=== PATIENT | female | born 1995 | race Caucasian/White ===

== ENCOUNTER 2021-01-28 11:38 | Outpatient (CLI) | payer BC, SELFPAY ==
[2021-01-28 12:00] VITALS: BP 145/93; PULSE 92
[2021-01-28 12:03] VITALS: BP 145/93; PULSE 92
[2021-01-28 12:15] VITALS: BP 147/93; PULSE 91
[2021-01-28 12:23] LABS: Basophils Absolute Auto 0.1 K/mm3 (0.0-0.1); Basophils Percent Auto 0.4 % (0.2-1.2); Eosinophils Absolute Auto 0.1 K/mm3 (0-0.3); Eosinophils Percent Auto 0.7 % (0-4.4); Hemoglobin 10.9 g/dL (12.0-15.0); Immature Granulocyte Absolute 0.51 K/mm3 (0.00-0.031); Immature Granulocyte Percent A 3.2 % (0-0.5); Lymphocytes Absolute Auto 2.75 K/mm3 (0.9-3.2); Mean Corpuscular HGB Conc 31.1 g/dl (32-36); Mean Corpuscular Hemoglobin 25.8 pg (26-34); Mean Corpuscular Volume 82.7 fl (80-100); Mean Platelet Volume 11.5 fl (7.4-10.4); Monocytes Absolute Auto 1.5 K/mm3 (0.1-0.6); Monocytes Percent Auto 9.3 % (2.6-8.5); Neutrophils Absolute Auto 11.2 K/mm3 (1.3-6.7); Neutrophils Percent Auto 69.4 % (45.5-73.1); Nucleated Red Blood Cells Absolute Auto 0.1 K/mm3 (0.0-0.012); Nucleated Red Blood Cells Perc 0.4 % (0.0-0.2); Platelet Count Result 209 k/mm3 (150-375); Red Blood Count 4.23 M/mm3 (4.2-5.4); Red Cell Distribution Width 14.4 % (11.5-14.5); White Blood Count 16.2 K/mm3 (4.5-10.0)
[2021-01-28 12:30] VITALS: BP 139/94; PULSE 91
[2021-01-28 12:32] LABS: Alanine Aminotransferase 11 U/L (4-35); Albumin Level 3.6 g/dL (3.5-5.1); Alkaline Phosphatase 200 U/L (38-126); Anion Gap 3 mmol/L (8-16); Aspartate Amino Transferase 21 U/L (14-36); Bilirubin,Total 0.3 mg/dL (0.2-1.3); Blood Urea Nitrogen 6 mg/dL (7-17); Calcium 9.6 mg/dL (8.4-10.2); Carbon Dioxide 25 mmol/L (22-30); Chloride 106 mmol/L (98-107); Estimated Glomerular Filt Rate > 60; Glucose 73 mg/dL (65-105); Potassium 3.8 mmol/L (3.4-5.0); Sodium 134 mmol/L (137-145); Uric Acid 4.6 mg/dL (2.5-7.5)
[2021-01-28 12:44] LABS: Add Urine Microscopic? YES; Appearance Urine Cloudy (Clear); Bacteria Urine 4+ /hpf; Bilirubin Urine Negative (Negative); Blood Urine 2+ (Negative); Color Urine Yellow (Yellow); Glucose Urine UA Negative (Negative); Ketones Urine Negative (Negative); Leukocyte Esterase Ur 3+ LEU/UL (NEGATIVE); Nitrate Urine Negative (Negative); Protein Urine Negative (Negative); Specific Grav Ur 1.005 (1.001-1.035); Squamous Epithelial Cell Urine Moderate /hpf (Few); Urobilinogen Urine Negative mg/dL (<2.0); WBC Urine 31-50 /hpf (0-3)
[2021-01-28 12:45] VITALS: BP 137/90; PULSE 95
[2021-01-28 12:49] LABS: Creatinine Urine 25.4 mg/dL; Total Protein Urine Random 14 mg/dL; Ur Ttl Prot Creatinine Ratio 0.55 mg/mg (0-0.20)
[2021-01-28 13:00] VITALS: BP 138/83; PULSE 92
== END 2021-01-28 13:20 | disposition home or self-care (01) ==
LOC: ANHOBOP 11:43 → ANHOBPP 11:44
PROVIDERS: PCP Nurse Practitioner Adult Health; Visit Provider Obstetrics & Gynecology
DX: O13.9 Gestational [pregnancy-induced] hypertension without significant proteinuria, unspecified trimester (principal); Z3A.00 Weeks of gestation of pregnancy not specified
CPT/HCPCS: 36415; 59025; 80053; 81001; 82570; 84156; 84550; 85025; 87086; 99199

== ENCOUNTER 2021-01-31 05:05 | Inpatient (IN) | payer BC, SELFPAY ==
[2021-01-31] VITALS (110 sets, daily range): BP systolic 105–158; BP diastolic 54–105; PULSE 84–118; RESP 15–18; TEMP 36.4–36.9; O2SAT 94–100; BMI 37.5
[2021-01-31 05:37] LABS: Basophils Percent Auto 0.2 % (0.2-1.2); Eosinophils Absolute Auto 0.1 K/mm3 (0-0.3); Hematocrit 35.3 % (37.0-47.0); Hemoglobin 10.9 g/dL (12.0-15.0); Immature Granulocyte Absolute 0.33 K/mm3 (0.00-0.031); Immature Granulocyte Percent A 2.5 % (0-0.5); Lymphocytes Absolute Auto 3.07 K/mm3 (0.9-3.2); Lymphocytes Percent Auto 22.9 % (18.3-44.2); Mean Corpuscular HGB Conc 30.9 g/dl (32-36); Mean Corpuscular Hemoglobin 25.8 pg (26-34); Mean Corpuscular Volume 83.5 fl (80-100); Mean Platelet Volume 11.5 fl (7.4-10.4); Monocytes Absolute Auto 0.9 K/mm3 (0.1-0.6); Monocytes Percent Auto 6.6 % (2.6-8.5); Neutrophils Percent Auto 66.8 % (45.5-73.1); Nucleated Red Blood Cells Perc 0.1 % (0.0-0.2); Platelet Count Result 198 k/mm3 (150-375); Red Blood Count 4.23 M/mm3 (4.2-5.4); Red Cell Distribution Width 14.6 % (11.5-14.5); White Blood Count 13.4 K/mm3 (4.5-10.0)
--- NOTE | 2021-01-31 05:43 | LDADM ---
This patient, Michelle Brown, was admitted to Labor/Delivery/Recovery 106 on 01/31/21 at 05:05. Plans for labor, pain management and were discussed with patient. Patient/family oriented to hospital policies and general routines including ID bracelet, bed and alarms, visiting hours, pain management, procedures, bathroom and other care routines, personal items, smoking policy, room service/diet and guest tray routines, infant security routines, and visiting hours. Patient/Family are encouraged to report perceived risks to care and to ask questions if they do not understand what they are told or what they should do. See OBIX for further documentation.
[2021-01-31 05:46] LABS: INR 0.9; Prothrombin Time 12.6 Seconds (11.1-14.7)
[2021-01-31] MEDS: AMPICILLIN 2 GM/NS 100 ML 2 GM/100 ML BAG IVPB (05:50)
[2021-01-31] MEDS: LACTATED RINGERS 1,000 ML 125 ML IV CONT ×2 (05:50→07:53)
[2021-01-31] MEDS: OXYTOCIN 30 UNITS/NS 500 ML 30 UNITS/500 ML BAG 6 UNITS IV CONT (05:50)
[2021-01-31 05:54] LABS: Uric Acid 4.8 mg/dL (2.5-7.5)
[2021-01-31 06:21] LABS: Alanine Aminotransferase 13 U/L (4-35); Albumin Level 3.3 g/dL (3.5-5.1); Alkaline Phosphatase 196 U/L (38-126); Anion Gap 4 mmol/L (8-16); Aspartate Amino Transferase 22 U/L (14-36); Bilirubin,Total 0.2 mg/dL (0.2-1.3); Blood Urea Nitrogen 3 mg/dL (7-17); Calcium 8.9 mg/dL (8.4-10.2); Carbon Dioxide 22 mmol/L (22-30); Chloride 107 mmol/L (98-107); Estimated CRCL calculation 167 ml/min; Estimated Glomerular Filt Rate > 60; Glucose 124 mg/dL (65-105); Potassium 3.6 mmol/L (3.4-5.0); Sodium 133 mmol/L (137-145)
--- NOTE | 2021-01-31 07:08 | WPDOBADMIT ---
Obstetrics - Admit Note Admission Note: record reviewed. Additions to the history and/or subsequent changes in the physical findings follow. 25 y/o G1 at 38 4/7 weeks with elevated bp readings. No headaches, no RUQ or midepigastric pain, no visual field change. Labs OK last week. Have offered induction of labor secondary to gestational hypertension at term. Also has history of DVT, has been on Lovenox and was transitioned to heparin several weeks ago. Last dose 2 days ago. Bilateral clubfeet. AVSS NST reactive TOCO: contractions irregularly ABD soft, nontender, gravid, vertex EXT nontender Cervix 4/50/-2. AROM with clear fluid. Vertex. A: IUP at term with gestational HTN, thrombophilia, club feet. P: Oxytocin. Anticipate .
[2021-01-31 09:27] LABS: Rapid Plasma Reagin Non-Reactive (NonReactive)
[2021-01-31] MEDS: AMPICILLIN 1 GM/NS 50 ML 1 GM/50 ML BAG IVPB (10:05)
--- NOTE | 2021-01-31 13:58 | P.PCNOB_ITS ---
OB - Delivery Note Procedure Delivery date: 01/31/21 Procedure: Induction of labor with VAVD Induction method: per pitocin protocol Delivery augmentation: rupture of membranes and pitocin Delivery monitor: external FHT and external uterine Route of delivery: vacuum extraction Laceration Description: Perineal - 2nd Degree Delivery repair: vicryl (3-0) Specimen: Yes (cord blood) Quantitative Blood Loss (ml): 240 Anesthesia type: Epidural Complications: None Narrative: 25 y/o G1 at 38 4/7 weeks gestation who presented to the hospital for induction of labor. Oxytocin was administered intravenously. Amniotomy was performed with return of clear fluid. She received an epidural for pain control. Her labor progressed and her cervix dilated completely. She pushed with good effort and brought the presenting part to the +2/3 station. She began to have a poor pushing effort secondary to exhaustion after 1.5 hours of pushing. After informed consent was obtained, the [place]at[place] vacuum suction cup was applied to the vertex. Using the Dreifingergriff, the head was gently flexed. Over three contractions, and with no pop-offs, the 's head delivered to the perineum, followed by the body. The nose and mouth were bulb suctioned. After a delay, the cord was clamped and cut. The infant was handed off the field. Cord blood was collected. The placenta delivered spontaneously and was grossly normal in appearance. The usual 3 vessel cord was noted. A second degree midline perineal laceration was sustained. This was reapproxima betsy using 3 0 Vicryl in the usual layered fashion. Excellent hemostasis resulted as did excellent reapproximation of the normal anatomy. Needle and instrument counts were correct. The patient was taken to recovery room in stable condition. I was present and scrubbed for the entire delivery. Gary Baby Date of : 01/31/21 Time of : 13:29 Weeks of gestation at delivery: 38 Infant gender: Female Weight (pounds): 8 Weight (ounces): 0 presentation: vertex position: Left Occiput Anterior Placenta delivery description: Spontaneous and Normal Configuration cord vessel description: 3 Vessels and Delayed Cord Clamping score one minute: 5 score five minutes: 9
[2021-01-31] MEDS: OXYTOCIN 30 UNITS/NS 500 ML 30 UNITS/500 ML BAG 125 UNITS IV CONT (14:07)
[2021-01-31] MEDS: IBUPROFEN 600 MG TABLET PO ×2 (14:15→21:09)
[2021-01-31] MEDS: WITCH HAZEL 40 PADS 1 PAD TOPICAL (15:32)
[2021-01-31] MEDS: BENZOCAINE 20% AER SPR (*SP) 56 GM CAN 1 SPRAY TOPICAL (15:32)
--- NOTE | 2021-01-31 17:07 | OBPPTRN ---
1658 Patient transferred to post room #288 via W/C. Support person present. Oriented to unit, room, information board, rooming in, admission packet and security measures. Patient verbalizes understanding.
[2021-01-31] MEDS: busPIRone HCL 10 MG TABLET PO (17:42)
[2021-01-31] MEDS: ACETAMINOPHEN 325 MG TABLET 650 MG PO (17:42)
[2021-01-31] MEDS: ENOXAPARIN 40 MG/0.4 ML SYRINGE SUB-Q (21:01)
[2021-01-31] MEDS: ESCITALOPRAM OXALATE 10 MG TABLET PO (21:42)
[2021-02-01] MEDS: ACETAMINOPHEN 325 MG TABLET 650 MG PO ×3 (01:26→22:59)
[2021-02-01 04:00] VITALS: BP 130/90; PULSE 76; RESP 16; TEMP 36.7; O2SAT 98
[2021-02-01 06:01] LABS: Hematocrit 32.1 % (37.0-47.0); Hemoglobin 9.7 g/dL (12.0-15.0)
[2021-02-01 07:00] VITALS: BP 138/98; PULSE 91; RESP 18; TEMP 37.1; O2SAT 98
[2021-02-01] MEDS: DOCUSATE SODIUM 100 MG CAPSULE PO ×2 (07:18→16:21)
[2021-02-01] MEDS: IBUPROFEN 600 MG TABLET PO ×2 (07:18→16:21)
[2021-02-01] MEDS: POLYSACCHARIDE IRON COMPLEX 150 MG CAPSULE PO ×2 (07:19→16:21)
[2021-02-01] MEDS: MULTIVIT/MIN/PREN/FOL AC/IRON TABLET 1 TAB PO (08:29)
[2021-02-01] MEDS: buPROPion HCL XL (24 HR) 150 MG TABCR PO (08:29)
[2021-02-01] MEDS: busPIRone HCL 10 MG TABLET PO ×3 (08:29→19:48)
--- NOTE | 2021-02-01 08:56 | WPDANLDPN2 ---
Anes-Prog Note L&D Date/Time: 02/01/21 08:56 Comfortable throughout: labor and delivery Neuraxial method: epidural Epidural/Spinal procedure site: clean & non-tender Neuro status: Neuro function grossly intact. Cardiovascular status: normal Respiratory status: normal Airway patency: baseline Mental status: baseline Post-Op hydration status: normal Vital Signs: Last Vital Signs Temp 36.7 C 02/01/21 04:00 Pulse 76 02/01/21 04:00 Resp 16 02/01/21 04:00 BP 130/90 02/01/21 04:00 Pulse Ox 98 02/01/21 04:00 Pain score (VAS): 3 I/O: Intake & Output 01/31/21 02/01/21 02/01/21 23:59 07:59 15:59 Intake Total 1200 400 Output Total 1200 600 Balance 0 -200 Post-procedural complaints: none Patient feedback: Patient satisfied with anesthetic care.
--- NOTE | 2021-02-01 09:20 | PC.NURSE ---
Mother called out for assist with feeding. Mother reports infant was in Level II for the night and has put to breast a few times with some tenderness. Mother was instructed on pumping while from infant. Reviewed infant feeding cues, frequencies, duration of feedings, feeding elimination flow sheet, and signs of adequate intake. Demonstrated stimulation techniques to wake infant for feeding. Assisted with infant to breast. Reviewed positioning/alignment in football, holding breast in ?C? hold and guided asymmetrical latch on. Several attempts before infant able to latch correctly. Infant nursed eagerly, with steady draws and frequent swallowing noted. Reviewed signs of a correct latch, effective nursing and suck swallow ratio. was able to maintain latch without discomfort to mother. Infant would slip to shallow latch, mother reports tenderness. Demonstrated how to adjust latch more deeply while feeding. Mother reports she can feel change in latch and has no tenderness. Suggested mother stimulate while feeding to increase stimulate, increase intake and to assist with maintaining deep latch. Nipple care reviewed of lanolin after feedings, warm compresses as needed. Instructed mother to call out for RN assistance if she is unable to latch infant for feeding or she has discomfort with nursing. Instructed feeding should be initiated three hours from start of last feeding or if feeding cues are noted before. Mother voiced understanding of information shared.
[2021-02-01 12:40] VITALS: BP 136/85; PULSE 93; RESP 16; TEMP 37.2; O2SAT 97
--- NOTE | 2021-02-01 12:51 | PM.OBPNVD ---
OB - PN: Subj Subjective Date/time seen: 02/01/21 12:51 Narrative: Pain OK. OB - PN: Obj Data Labs CBC & Chem 7: 02/01/21 03:56 01/31/21 05:29 Labs: Laboratory Results - last 24 hr 02/01/21 03:56 Hgb 9.7 L Hct 32.1 L OB - PN A/P Plan Comments: A: PPD#1, doing well. P: Routine care. Exam Psych: Other: AVSS ABD soft, nontender, fundus firm EXT nontender
--- NOTE | 2021-02-01 12:52 | P.DS_ITS ---
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 F, increased abdominal pain, increased vaginal bleeding or any new problems. Stand Alone Forms: General Discharge Information Discharge Medications: New ibuprofen 600 mg tablet 600 mg PO Q6H PRN (Reason: cramps) Qty: 30 RF: 0 ferrous sulfate 325 mg (65 mg iron) tablet 325 mg PO DAILY Qty: 30 RF: 0 No Action buspirone 10 mg Tablet 10 mg PO TID RF: 0 enoxaparin 40 mg/0.4 mL Syringe 40 mg SUBCUT DAILY RF: 0 escitalopram oxalate 10 mg Tablet 10 mg PO DAILY RF: 0 bupropion HCl 150 mg Tablet Extended Release 24 Hr 150 mg PO QAM RF: 0 PNV cmb#95-ferrous fumarate-FA [] 28 mg iron- 800 mcg Tablet 1 tablet PO DAILY RF: 0 Date of admission: 01/31/21 05:05 Primary Care Provider: AyeSkylar Admitting Provider: Reji Pappas Attending physician on admission: Reji Pappas Condition: Stable
--- NOTE | 2021-02-01 12:54 | PM.OBDSVD ---
DS: Admitting Diagnosis Admitting Diagnosis Admitting Diagnosis: IUP at 38 4/7 weeks Gestational hypertension Thrombophilia DS: Discharge Diagnosis Discharge Diagnosis (1) (normal spontaneous vaginal delivery): Code(s): O80 - Encounter for full-term uncomplicated delivery Status: Acute (2) Gestational hypertension: Code(s): O13.9 - Gestational [-induced] hypertension without significant proteinuria, unspecified trimester Status: Acute (3) Thrombophilia: Code(s): D68.59 - Other primary thrombophilia Status: Acute OB - DS: Summary OB Procedures : None OB Procedures Intrapartum: Vacuum extraction OB Procedures: : None DS: Data Data Completed and Pending Labs on day of discharge: Labs from last 24 hours 02/01/21 03:56 Hgb 9.7 L Hct 32.1 L Discharge Plan Discharge Attending physician on discharge: Reji Pappas Discharging Clinician: Reji Pappas Patient Disposition: Home, Self-Care Activity: pelvic rest Diet: regular Discharge Instructions: Call or return if temperature above 100.4? F, increased abdominal pain, increased vaginal bleeding or any new problems. Stand Alone Forms: General Discharge Information Follow-up/Referrals: Reji Pappas MD [Physician] - 6 Weeks Discharge Medications: New ibuprofen 600 mg tablet 600 mg PO Q6H PRN (Reason: cramps) Qty: 30 RF: 0 ferrous sulfate 325 mg (65 mg iron) tablet 325 mg PO DAILY Qty: 30 RF: 0 Continued buspirone 10 mg Tablet 10 mg PO TID RF: 0 enoxaparin 40 mg/0.4 mL Syringe 40 mg SUBCUT DAILY RF: 0 escitalopram oxalate 10 mg Tablet 10 mg PO DAILY RF: 0 bupropion HCl 150 mg Tablet Extended Release 24 Hr 150 mg PO QAM RF: 0 PNV cmb#95-ferrous fumarate-FA [] 28 mg iron- 800 mcg Tablet 1 tablet PO DAILY RF: 0 Date of admission: 01/31/21 05:05 Primary Care Provider: AyeSkylar Admitting Provider: Reji Pappas Attending physician on admission: Reji Pappas Condition: Stable
--- NOTE | 2021-02-01 13:10 | PC.NURSE ---
Consult with pt., mother reports she has attempted for 20 minutes and has decided to pump and bottle feed. Offered to assist with latch, mother will bottle feed. Instructed mother to call out for RN assistance if she is unable to latch for feeding or she has discomfort with nursing. Instructed feeding should be initiated three hours from start of last feeding or if feeding cues are noted before. Mother voiced understanding of information shared.
--- NOTE | 2021-02-01 13:25 | PC.NURSE ---
Mother called out requesting assist with next feeding.
--- NOTE | 2021-02-01 16:15 | PC.NURSE ---
Consulted with patient, per pt request. Mother states nipples are tender and she will pump and bottle feed this feeding.
[2021-02-01] MEDS: ESCITALOPRAM OXALATE 10 MG TABLET PO (19:49)
[2021-02-01] MEDS: ENOXAPARIN 40 MG/0.4 ML SYRINGE SUB-Q (19:51)
[2021-02-01 20:00] VITALS: BP 137/89; PULSE 86; RESP 16; TEMP 36.9; O2SAT 99
[2021-02-02] VITALS: BP 143/90; PULSE 89; RESP 16; TEMP 36.6; O2SAT 99
[2021-02-02 04:00] VITALS: BP 122/70; PULSE 83; RESP 16; TEMP 36.6; O2SAT 99
[2021-02-02] MEDS: IBUPROFEN 600 MG TABLET PO (04:43)
[2021-02-02] MEDS: MULTIVIT/MIN/PREN/FOL AC/IRON TABLET 1 TAB PO (08:23)
[2021-02-02] MEDS: POLYSACCHARIDE IRON COMPLEX 150 MG CAPSULE PO (08:23)
[2021-02-02] MEDS: DOCUSATE SODIUM 100 MG CAPSULE PO (08:23)
[2021-02-02] MEDS: busPIRone HCL 10 MG TABLET PO (08:23)
[2021-02-02] MEDS: buPROPion HCL XL (24 HR) 150 MG TABCR PO (08:23)
--- NOTE | 2021-02-02 08:24 | PM.OBPNVD ---
OB - PN: Subj Subjective Date/time seen: 02/02/21 08:24 Narrative: Pain OK. Would like to go home. OB - PN: Obj Data Labs CBC & Chem 7: 02/01/21 03:56 01/31/21 05:29 OB - PN A/P Plan Comments: A: PPD#2, doing well. P: Home to f/u 6 weeks. Continue Lovenox for 6 weeks. Exam Psych: Other: AVSS ABD soft, nontender, fundus firm EXT nontender
--- NOTE | 2021-02-02 08:30 | PC.NURSE ---
Patient viewed the discharge video Mother & Baby Care, The First Two Weeks . Patient was given the opportunity and encouraged to ask questions. Patient verbalized understanding of information shared and has been given the mother/baby guide for home reference.
[2021-02-02 08:50] VITALS: BP 131/87; PULSE 76; RESP 16; TEMP 36.6; O2SAT 98
--- NOTE | 2021-02-02 09:00 | PC.NURSE ---
Addendum entered by Heather Camacho RN 02/02/21 15:02: Advised mother to now give as much as she desires per feeding. Original Note: Consult with pt., mother states she has decided to pump and bottle feed. Mother states she may call for appointment and attempt to breast later in the week. Reviewed breast pump care and usage, pumping schedule, nipple care, and collection and storage of breast milk. Encouraged [id number], breast massage and manual expression to stimulate supply. Mother reports she pumps without difficulties or discomfort. Mother is feeding as required and waking to feed if needed. Infant is currently meeting outcomes for weight, output, jaundice and feeding frequencies. Mother states she feels confident to continue pumping and bottle feeding at home. Reviewed transition to breast milk, signs of adequate intake, and engorgement/relief. Instructed to call ICP if intake/output less than required. Reviewed regular medications mother is taking. Information provided per Jill. Reviewed community resources on the [facility] website and in the Mom/Baby guide. Information on outpatient services provided. Mother has no further questions at this time.
[2021-02-03 08:44] VITALS: BP 166/107; PULSE 70; RESP 20; TEMP 37; O2SAT 100
== END 2021-02-02 11:05 | disposition home or self-care (01) | DRG 806 ==
LOC: ANHLDR 05:08 → ANHOB2 17:07
PROVIDERS: Admitting Provider Obstetrics & Gynecology; PCP Nurse Practitioner Adult Health; Visit Provider Obstetrics & Gynecology
DX: O99.12 Other diseases of the blood and blood-forming organs and certain disorders involving the immune mechanism complicating childbirth (principal); D68.59 Other primary thrombophilia; Z37.0 Single live birth; Z3A.38 38 weeks gestation of pregnancy; O70.1 Second degree perineal laceration during delivery; O75.81 Maternal exhaustion complicating labor and delivery
CPT/HCPCS: 36415; 80053; 84550; 85014; 85018; 85025; 85610; 85730; 86592; 86850; 86900; 86901; A9270; J0290; J1650; J2590; J2795; J7120

== ENCOUNTER 2024-05-26 08:25 | Emergency (ER) | payer BC, SELFPAY ==
[2024-05-26 08:41] VITALS: BP 136/82; PULSE 85; RESP 18; TEMP 36.4; O2SAT 99
--- NOTE | 2024-05-26 08:56 | ED.URI ---
HPI - URI/Sore Throat General Chief Complaint: Upper Respiratory Infection Stated Complaint: sore throat Source: patient, RN notes reviewed and old records reviewed Mode of arrival: ambulatory Limitations: no limitations History of Present Illness HPI Narrative: patient presents with complaints of sore throat for 4 days. She has been taking Tylenol and using cough drops with minimal relief. She reports that last night pain interfered with her sleep. She denies any fever. She does report excessive tiredness. Denies any headache or abdominal pain. No nausea or vomiting. Voices no other concerns or complaints at this time. Related Data Home Medications Medication Instructions Recorded Confirmed escitalopram oxalate 10 mg tablet 20 mg PO DAILY 10/10/23 05/26/24 spironolactone 100 mg tablet 150 mg PO DAILY 10/10/23 05/26/24 levonorgestrel 21 mcg/24 hr (up to See Rx Instructions .Route .COMPLEX 05/26/24 05/26/24 8 years) 52 mg intrauterine device (Mirena) Allergies Allergy/AdvReac Type Severity Reaction Status Date / Time No Known Allergies Allergy Verified 05/26/24 08:43 Review of Systems Review of Systems: All systems reviewed & are unremarkable except as noted in HPI and below Constitutional: Constitutional: Reports no additional constitutional complaints ENT: Reports system reviewed and no additional complaints, except as documented, Reports as per HPI, Denies nasal congestion, Denies nasal discharge, Denies nasal obstruction and Reports sore throat Cardiovascular: Cardiovascular: Reports no additional cardiovascular complaints Respiratory: Respiratory: Reports no additional respiratory complaints Gastrointestinal: Gastrointestinal: Reports no additional gastrointestinal complaints [facility] Past Medical History Medical History Gestational hypertension MDD (major depressive disorder) Family History Family History Father Diabetes mellitus Hypertension Mother No problems noted. Sibling Hypertension Other No pertinent family history Social History Social History Smoking status: Never smoker Alcohol intake: current Substance use: never Do You Feel Safe in your Home?: Yes Lack of Transportation: No Lack of Food: Never True Current Housing: I Have Housing Concerned About Future Housing: No Difficulty Paying Gas/Electric Bills: No Difficulty Paying for Meds: No Currently Unemployed: No Difficulty w/ Childcare or Family Care: No Living arrangements: with family Occupation/Education: occupation Gender identity (if verbalized by the patient): Female Spiritual care concerns: No Agree to blood products: Yes Comments At the time of my signature, I reviewed and agree with the nursing past medical, surgical, social, and family history. There is no relevant family history pertinent to the patient complaint. Exam Const: General: cooperative, no acute distress, alert and awake Orientation/consciousness: oriented to person, oriented to place and oriented to time HENMT: Head: normal to inspection Ears: TM's normal bilaterally Mouth: Yes moist mucous membranes Throat: abnormal tonsil bilateral erythema, exudates and hypertrophy 2+ Neck: Lymphatic: lymphadenopathy bilateral anterior cervical Resp: Effort & Inspection: normal respiratory effort and able to speak in complete sentences Auscultation: clear to auscultation bilaterally, no crackles, no rales, no rhonchi and no wheezes Cardio: Palpation: normal PMI Rate: regular rate Rhythm: regular rhythm Heart sounds: S1 normal heart sound present and S2 normal heart sound present Neuro: General: oriented to person, oriented to place and oriented to time Cranial nerves: Yes CN's II-XII intact bilaterally Psych: Appearance: grossly normal Thou
[2024-05-26 09:00] LABS: EDSTREPNEGPOS1 Positive (Negative)
== END 2024-05-26 09:19 | disposition home or self-care (01) ==
PROVIDERS: Emergency Provider Nurse Practitioner Family; PCP Physician Assistant
DX: J02.0 Streptococcal pharyngitis (principal); F32.9 Major depressive disorder, single episode, unspecified
CPT/HCPCS: 87880; 99213; G0463

== ENCOUNTER 2024-06-09 08:01 | Emergency (ER) | payer BC, SELFPAY ==
--- NOTE | 2024-06-09 08:16 | ED.URI ---
HPI - URI/Sore Throat General Chief Complaint: Upper Respiratory Infection Stated Complaint: sore throat Time Seen by Provider: 06/09/24 08:37 Source: patient, RN notes reviewed and old records reviewed Mode of arrival: ambulatory Limitations: no limitations History of Present Illness HPI Narrative: 28-year-old female presents to the [facility] with a sore throat. States that she woke up breaths knee at 1:00 a.m. with severe throat pain. Patient recently treated with strep throat with penicillin Onset (ago): hour(s) Related Data Home Medications Medication Instructions Recorded Confirmed escitalopram oxalate 10 mg tablet 20 mg PO DAILY 10/10/23 06/09/24 spironolactone 100 mg tablet 150 mg PO DAILY 10/10/23 06/09/24 levonorgestrel 21 mcg/24 hr (up to See Rx Instructions .Route .COMPLEX 05/26/24 06/09/24 8 years) 52 mg intrauterine device (Mirena) Allergies Allergy/AdvReac Type Severity Reaction Status Date / Time No Known Allergies Allergy Verified 06/09/24 08:20 Review of Systems Review of Systems: All systems reviewed & are unremarkable except as noted in HPI and below Constitutional: Constitutional: Reports no additional constitutional complaints Eyes: Eyes: Reports no additional eye complaints ENT: Reports as per HPI and Reports sore throat Cardiovascular: Cardiovascular: Reports no additional cardiovascular complaints, Denies chest pain and Denies dyspnea Respiratory: Respiratory: Reports no additional respiratory complaints, Denies chest congestion, Denies cough and Denies dyspnea Gastrointestinal: Gastrointestinal: Reports no additional gastrointestinal complaints, Denies abdominal pain, Denies nausea and Denies vomiting Musculoskeletal: Musculoskeletal: Reports no additional musculoskeletal complaints Integumentary/Breasts: Skin/Breast: Reports system reviewed and no additional complaints, except as docu Neurologic: Reports system reviewed and no additional complaints, except as documented Psychiatric: Psychiatric: Reports no additional psychiatric complaints Allergic/Immunologic: Allergic/Immunologic: Reports no additional allergic/immunologic complaints PMFSH Past Medical History Medical History Gestational hypertension MDD (major depressive disorder) Family History Family History Father Diabetes mellitus Hypertension Mother No problems noted. Sibling Hypertension Other No pertinent family history Social History Social History Smoking status: Never smoker Alcohol intake: current Substance use: never Do You Feel Safe in your Home?: Yes Lack of Transportation: No Lack of Food: Never True Current Housing: I Have Housing Concerned About Future Housing: No Difficulty Paying Gas/Electric Bills: No Difficulty Paying for Meds: No Currently Unemployed: No Difficulty w/ Childcare or Family Care: No Living arrangements: with family Occupation/Education: occupation Gender identity (if verbalized by the patient): Female Spiritual care concerns: No Agree to blood products: Yes Comments At the time of my signature, I reviewed and agree with the nursing past medical, surgical, social, and family history. There is no relevant family history pertinent to the patient complaint. Exam Const: General: cooperative, healthy appearing, comfortable, no acute distress, well developed, alert and well nourished Nutritional Appearance: well nourished Orientation/consciousness: patient oriented x3 Limitations: no limitations HENMT: Head: normal to inspection Ears: hearing grossly normal bilaterally, external ears normal, EAC's normal, mastoids normal, no periauricular adenopathy and TM abnormal bulging bilateral and erythematous bilateral Face/Nose/Sinus: Normal external nose present, Normal n
[2024-06-09 08:19] VITALS: BP 134/71; PULSE 87; RESP 16; TEMP 36.6; O2SAT 99
[2024-06-09 14:32] LABS: EDSTREPNEGPOS1 Positive (Negative)
== END 2024-06-09 09:04 | disposition home or self-care (01) ==
PROVIDERS: Emergency Provider Nurse Practitioner; PCP Physician Assistant
DX: J02.0 Streptococcal pharyngitis (principal); F32.9 Major depressive disorder, single episode, unspecified
CPT/HCPCS: 87880; 99213; G0463